=== PATIENT | male | born 1955 | race Caucasian/White ===

== ENCOUNTER → 2020-02-18 | Outpatient (CLI) | payer MEDICARE, OTHER | END | disposition home or self-care (01) | LOC: LAB 11:26 | PROVIDERS: ATTEND Nurse Anesthetist, Certified Registered | DX: Z01.812 Encounter for preprocedural laboratory examination (principal); Z20.828 Contact with and (suspected) exposure to other viral communicable diseases | CPT/HCPCS: U0003-CS ==

== ENCOUNTER → 2020-02-21 | Day surgery (SDC) | payer MEDICARE, OTHER ==
[~2020-02-21] MED LIST: ATOR20TA PO; FINA5TAB4 PO; IPRATRPIUM/ALBUTEROL 0.5/2.5MG 3 ML NEBU. NEB PRN; LIDOCAINE 2% PF 5 ML VIAL. ONE; MIDAZOLAM HCL PF 2 MG/2 ML VIAL. IV ONE; ONDANSETRON PF 4 MG/2 ML VIAL. IV PRN; PROPOFOL 10,000 MCG/ML (20ML) VIAL IV ONE; TAMS0.4C97 PO
[2020-02-21] MEDS: IV RINGERS SOLUTION,LACTATED 1,000 ML IV SCH (06:55)
[2020-02-21 08:25] VITALS: BP 113/73
--- NOTE | 2020-02-22 16:08 | PATHOLOGY ---
[facility] Accession Number: [id number] . 01 Material submitted: . cecum - CECAL POLYP . 02 Diagnosis: Colon biopsies, cecal polyp: - Hyperplastic polyp. . ([facility]; 02/22/2020) [facility] 02/22/2020 1046 Local . 02 Comment: There are no adenomatous changes or evidence of malignancy. . ([facility]:mm; 02/22/2020) . 02 Electronically signed: . Jarad Pearce MD, Pathologist NPI- [id number] . 01 Gross description: . Received in formalin labeled "Bureau, Phil, cecal polyp" is a fragment of chino-brown soft tissue measuring 0.5 x 0.4 x 0.1 cm. The specimen is submitted entirely in A1. ([facility]; 02/21/2020) [facility] 02/21/2020 1933 Local . 02 Pathologist provided ICD-10: K63.5 . 02 CPT . 376572 Specimen Comment: A courtesy copy of this report has been sent [phone] Specimen Comment: [phone] Specimen Comment: Report sent to / DR WATT Performed at: 01 [facility] [address], [place] [id number] MD Benigno Rangel MD Phone: [phone] Performed at: 02 [facility] [address] [place], [place] [id number] MD Jarad Pearce MD Phone: [phone]
== END | disposition home or self-care (01) ==
LOC: SURG 06:29
PROVIDERS: ATTEND Internal Medicine Gastroenterology
DX: R19.5 Other fecal abnormalities (principal); D12.0 Benign neoplasm of cecum; K64.8 Other hemorrhoids; K62.89 Other specified diseases of anus and rectum; K63.89 Other specified diseases of intestine; N40.0 Benign prostatic hyperplasia without lower urinary tract symptoms; E78.00 Pure hypercholesterolemia, unspecified; Z83.71 Family history of colonic polyps; Z86.010 Personal history of colon polyps; Z80.0 Family history of malignant neoplasm of digestive organs; Z79.899 Other long term (current) drug therapy; Z88.1 Allergy status to other antibiotic agents; Z98.890 Other specified postprocedural states
CPT/HCPCS: 45380; 88305; J2001; J2704; J7120

== ENCOUNTER → 2021-06-10 | Outpatient (CLI) | payer MEDICARE, OTHER ==
[2020-02-21 08:25] VITALS: BP 113/73
[~2021-06-10] MED LIST changes: -IPRATRPIUM/ALBUTEROL 0.5/2.5MG 3 ML NEBU. NEB PRN; -LIDOCAINE 2% PF 5 ML VIAL. ONE; -MIDAZOLAM HCL PF 2 MG/2 ML VIAL. IV ONE; -ONDANSETRON PF 4 MG/2 ML VIAL. IV PRN; -PROPOFOL 10,000 MCG/ML (20ML) VIAL IV ONE
--- NOTE | 2021-06-10 09:14 | RAD ---
Examination: Ultrasound abdomen limited HISTORY: History of elevated liver function tests COMPARISON: None available FINDINGS: The visualized pancreas grossly appears unremarkable. The liver length measures 15.1 cm. The common b ile duct measures 6 mm in transverse dimension. The gallbladder is mildly distended. The gallbladder wall thickness measures 1.1 mm. The right kidney measures 12.0 x 5.2 x 4.7 cm. Mildly enlarged appear ing pancreas. Visualized IVC within normal limits of dimension. IMPRESSION: 1. No evidence of gallstones. 2. Minimally prominent common bile duct. Correlate with lab values. 3. Mild enlarged pancreas. Consider CT for better evaluation. Electronically signed by: Herberth Tian MD (06/10/2021 9:12 AM) [id number]
== END ==
LOC: US 07:53
PROVIDERS: ATTEND Internal Medicine
DX: R74.01 Elevation of levels of liver transaminase levels (principal); K86.89 Other specified diseases of pancreas; R79.89 Other specified abnormal findings of blood chemistry; K82.8 Other specified diseases of gallbladder
CPT/HCPCS: 76705